=== PATIENT | male | born 1985 | race Caucasian/White ===

== ENCOUNTER 2017-06-28 15:08 | Emergency (ER) | payer BC ==
[~2017-06-28] VITALS: Ht 185.4 cm; Wt 104.3 kg
[~2017-06-28 15:08] MED LIST: BROMFED DM COU118 ML PO; TESSALON PERLE100 MG PO
--- NOTE | 2017-06-28 17:59 | ED GI/GU/ABDOMINAL COMPLAINT ---
History of Present Illness General Chief Complaint: General Adult Stated Complaint: BLEEDING S/P HEMMORRHOID REMOVAL THIS AM Source: patient, old records Exam Limitations: no limitations Vital Signs & Intake/Output Vital Signs & Intake/Output Vital Signs Date Time Temp Pulse Resp B/P B/P Pulse O2 O2 Flow FiO2 Mean Ox Delivery Rate 06/28 1810 64 139/76 06/28 1733 97.9 54 18 105/49 96 Room Air ED Intake and Output 06/29 0000 06/28 1200 Intake Total Output Total Balance Patient 230 lb Weight Weight Reported by Patient Measurement Method Allergies Coded Allergies: shellfish derived (Intermediate, ITCHY EYES/THROAT 11/03/15) Reconcile Medications No Known Home Medications Triage Note: PT TO ED C/O "PROFUSELY BLEEDING". HAD HEMORRHOID REMOVAL TODAY IN DR NOE'S OFFICE AROUND NOON. STARTED BLEEDING ABOUT 1 HOUR AGO, CALLED OFFICE AND WAS TOLD TO COME TO ED. Triage Nurses Notes Reviewed? yes Onset: Abrupt Duration: day(s): (1) Timing: single episode today Quality/Severity: fullness, sharpness Severity Numbers: 8 Location: perianal Radiation: no radiation Activities at Onset: hemorrhoid drainage Prior Abdominal Problems: none Past Sexual History: Unobtainable at this time No Modifying Factors: none Modifying Factors: Worsens With: movement, palpation. HPI: 31-year-old male with no past medical history presents for evaluation of bleeding hemorrhoid. Patient was seen by Dr. Noe in his office this morning where he had a thrombosed hemorrhoid drained. He was discharged home and was doing well until he noticed heavy bleeding coming from the perianal area. He has not had a bowel movement. He also reports increasing pain in the area is not taking any medicine for the pain. No blood thinners. No abdominal pain. No melena. No nausea vomiting diarrhea no fevers. Past History Travel History Traveled to [place] past 21 day No Medical History Any Pertinent Medical History? 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 No Review of Systems Review of Systems Constitutional: Reports: no symptoms. EENTM: Reports: no symptoms. Respiratory: Reports: no symptoms. Cardiovascular: Reports: no symptoms. GI: Reports: see HPI. Genitourinary: Reports: no symptoms. Musculoskeletal: Reports: no symptoms. Skin: Reports: no symptoms. Neurological/Psychological: Reports: no symptoms. Hematologic/Endocrine: Reports: no symptoms. Immunologic/Allergic: Reports: no symptoms. All Other Systems: Reviewed and Negative Physical Exam Physical Exam General Appearance: well developed/nourished, no apparent distress, alert, awake Head: atraumatic, normal appearance Eyes: Bilateral: normal appearance, EOMI. Ears, Nose, Throat, Mouth: hearing grossly normal, moist mucous membrane Neck: normal inspection, supple, full range of motion Respiratory: no respiratory distress Gastrointestinal: soft, non-tender Rectal: there is a external hemorrhoid present with surgical laceration. There is small amount of bleeding from this area. Also appears to be some bleeding from the anus. There is pain to palpation the perianal area. No focal fluctuant areas no erythema no internal hemorrhoids or masses palpated. Back: normal inspection, normal range of motion Extremities: normal range of motion Neurologic/Psych: no motor/sensory deficits, awake, alert, oriented x 3, normal gait Skin: intact, normal color, warm/dry Core Measures ACS in differential dx? No Sepsis Present: No Sepsis Focused Exam Completed? No Progress Differential Diagnosis: bleeding hemorrhoid, postsurgical bleeding, perianal abscess, perirectal abscess, internal hemorrhoid Plan of Care: Patient seen and evaluated. He has bleeding coming from his anus and the drainage thrombosed hemorrhoid. kalostat and gauze was applied to the area. Patient not take any blood thinners he has no medical problems. We'll reevaluate. Patient was seen by Dr. Noe in the ER. There is been no additional bleeding since topical hemostatic applied. Pain is controlled with Percocet. Vital signs are stable patient appears clinically well. He'll be discharged home with instructions to follow-up with Dr. Noe. Initial ED EKG: none Departure Departure Disposition: HOME OR SELF CARE Condition: Stable Clinical Impression Primary Impression: Bleeding external hemorrhoids Referrals: Nelly Beckett MD (PCP/Family) Chilango MONIQUEErick Strickland Additional Instructions: Continue to apply gauze daily. There may be some small amounts of bleeding. Continue to take Percocet as needed for pain. Follow-up with Dr. Noe for recheck in a few days. Monitor symptoms return with increasing bleeding or any other concerns. Departure Forms: Customer Survey General Discharge Information Prescriptions: Current Visit Scripts No Known Home Medications
[2017-06-28 18:10] VITALS: BP 139/76
[2017-09-21] MEDS ORDERED: OXYCODONE HCL5 M1 PO (17:49)
== END 2017-06-28 18:13 ==
LOC: ERH 15:08
DX: K64.4 Residual hemorrhoidal skin tags (principal)

== ENCOUNTER → 2017-09-21 | Day surgery (SDC) | payer OTHER ==
[~2017-09-21] VITALS: Ht 185.4 cm; Wt 104.3 kg
[~2017-09-21] MED LIST changes: +MORPHINE SULFAT15 M4 PO; +OXYCODONE HCL5 M1 PO; +ZOFRAN ODT4 M1 SL
--- NOTE | 2017-09-21 15:55 | Operative Report ---
Operative/Inv Procedure Report Surgery Date: 09/21/17 Name of Procedure: THD (Trans-anal hemorrhoid dearterialization) procedure with suture destruction of internal hemorrhoids multiple Pre-Operative Diagnosis: Internal hemorrhoids with complications Post-Operative Diagnosis: Internal hemorrhoids with complications Estimated Blood Loss: scant Surgeon/Parts Remover: Janusz Vasquez Jr., DO Anesthesia: local monitored anesthesi, block Monitors: Per routine Implants: None Drains: None Specimens: None Complications: None Condition: Good Operative Indication: This is a 32-year-old gentleman with chief complaint of frequent bright red blood per rectum and occasional thrombosis of external hemorrhoids. On physical exam in the office he did not have very large internal hemorrhoids so colonoscopy was performed to exclude other sources of bleeding. No other lower GI source was noted so my impression was that his bleeding was most consistent with hemorrhoid bleeding. So after discussing treatment options we decided on THD procedure Operative/Procedure Note Note: On the morning before his procedure patient in [facility]. He presented to [facility] and was taken to the operating room. He was placed in the supine position on the operating room table. Next he received IV sedation. Once the patient was comfortable he was converted to lithotomy and candycane stirrups. The perineum was prepped and draped in usual fashion. An anal block was performed using 0.5% Marcaine with epinephrine. A total of 30 cc of block was injected. Next the THD anoscope was inserted into the anal canal. The canal was examined quadrant by quadrant for Doppler pulses. 5 individual pulses were identified including: Anterior midline, posterior midline, left lateral, right anterior, right posterior. Using ultrasound guidance the hemorrhoid artery was ligated at each of these 5 positions. Following placement of figure of 8 suture, mucopexy suture destruction of each column was performed. At this point the procedure was concluded. The patient tolerated procedure well was converted back to supine position. At the end of this operation all needle sponges and instruments were accounted for Discharge Disposition: PACU
== END ==
LOC: STS 03:00
DX: K64.8 Other hemorrhoids (principal); K64.5 Perianal venous thrombosis; K62.5 Hemorrhage of anus and rectum; F17.200 Nicotine dependence, unspecified, uncomplicated
CPT/HCPCS: J0131; J2250

== ENCOUNTER 2017-09-22 07:13 | Emergency (ER) | payer OTHER ==
[~2017-09-22] VITALS: Ht 185.4 cm; Wt 102.1 kg
[~2017-09-22 07:13] MED LIST changes: -MORPHINE SULFAT15 M4 PO; -ZOFRAN ODT4 M1 SL
--- NOTE | 2017-09-22 07:45 | ED GENERAL ADULT ---
History of Present Illness General Chief Complaint: Male Genitourinary Problems Stated Complaint: UNABLE TO URINATE S/P SURGERY W DR. SUNG Source: patient, family Exam Limitations: no limitations Vital Signs & Intake/Output Vital Signs & Intake/Output Vital Signs Date Time Temp Pulse Resp B/P B/P Pulse O2 O2 Flow FiO2 Mean Ox Delivery Rate 09/22 1024 98.2 60 18 133/61 95 Room Air 09/22 0717 98.1 64 20 122/76 98 Room Air Allergies Coded Allergies: shellfish derived (Intermediate, ITCHY EYES/THROAT 09/17/17) Reconcile Medications Morphine Sulfate 15 MG TABLET 1 TAB PO BIDP PRN BREAKTHROUGH PAIN Ondansetron (Zofran Odt) 4 MG TAB.RAPDIS 1 TAB SL Q6 PRN NAUSEA/VOMITING Oxycodone HCl 5 MG TABLET 1 TAB PO Q4-6 PRN PAIN CONTROL Triage Note: PT TO ED C/O N/V, UNABLE TO VOID SINCE HEMORRHOID REMOVAL YESTERDAY BY DR LAZAR. PAIN TO RECTUM IS "UNBEARABLE". Triage Nurses Notes Reviewed? yes HPI: Patient is an otherwise healthy 32-year-old male who underwent surgery for hemorrhoids yesterday at 2:30 PM, and presents today with postoperative urinary retention and postoperative pain. He reports that following the surgery and the postoperative recovery unit he had a "trickle" of urine, and was released. Since then, he reports the urge to urinate the inability to do so. He also reports intense pain and his operative site which has been refractory to his dosages of oxycodone overnight. Upon my initial encounter he does appear uncomfortable. Past History Travel History Traveled to [place] past 21 day No Medical History Any Pertinent Medical History? 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 No Review of Systems Review of Systems Constitutional: Reports: see HPI. EENTM: Reports: no symptoms. Respiratory: Reports: no symptoms. Cardiovascular: Reports: no symptoms. GI: Reports: see HPI (rectal pain). Denies: abdominal pain. Genitourinary: Reports: see HPI, hesitation. Musculoskeletal: Reports: no symptoms. Skin: Reports: no symptoms. Neurological/Psychological: Reports: no symptoms. Hematologic/Endocrine: Reports: no symptoms. Immunologic/Allergic: Reports: no symptoms. All Other Systems: Reviewed and Negative Physical Exam Physical Exam General Appearance: alert, awake, anxious, moderate distress Comments: HEENT: Inspection of the head reveals a normocephalic cranium with no signs of trauma. Ophtho: Extraocular muscles are intact. The sclera are noninjected, and there is no obvious discharge. Neck: No signs of trauma or asymmetry to the neck. Respiratory: The patient exhibits no signs of labored breathing. Cardiac: Non-tachycardic. GI: Subjective rectal pain at surgical site : Urinary retention Neuro: The patient is oriented to person, place, time, and situation, with no obvious focal motor deficits. Cranial nerves II through XII are intact, and gait is normal. Behavioral: Anxious, almost tearful secondary to pain Dermatologic: Dermatologic examination reveals no obvious rashes or exanthems. Core Measures ACS in differential dx? No CVA/TIA Diagnosis: No Sepsis Present: No Sepsis Focused Exam Completed? No Progress Differential Diagnoses I considered the following diagnoses in my evaluation of the patient: Postoperative urinary retention, iatrogenic urinary tract infection, anesthesia effects, postoperative pain Plan of Care: Orders Procedure Date/time Status Regular Diet 09/22 L Active Plaza, Insertion/Removal/Asses 09/23 743 Active CULTURE,URINE 09/22 07 Active COMPREHENSIVE METABOLIC PANEL 09/22 07 Complete CBC WITHOUT DIFFERENTIAL 09/22 07 Complete Laboratory Tests 09/22/17 0801: Anion Gap 13, Estimated GFR > 60, BUN/Creatinine Ratio 13.8, Glucose 116 H, Calcium 9.0, Total Bilirubin 0.6, AST 21, ALT 43, Alkaline Phosphatase 74, Total Protein 7.1, Albumin 4.3, Globulin 2.8, Albumin/Globulin Ratio 1.5, CBC w Diff MAN DIFF ORDERED, RBC 5.31, MCV 85.7, MCH 29.2, MCHC 34.1, RDW 13.7, MPV 6.9 L, Gran % 86.3 H, Lymphocytes % 9.3 L, Monocytes % 4.1, Eosinophils % 0.3, Basophils % 0, Absolute Granulocytes 11.5 H, Absolute Lymphocytes 1.2, Absolute Monocytes 0.5, Absolute Eosinophils 0, Absolute Basophils 0, Platelet Estimate ADEQUATE, Normocytic RBCs VERIFIED, Normochromic RBCs VERIFIED Microbiology 09/22 820 URINE ROUT: Urine Culture - RECD Initial ED EKG: normal axis Comments: With Plaza placement, the patient produced 800 mL of urine. Postoperative urinary obstruction is confirmed, and a leg bag was left in with plans for outpatient urology follow-up in 72 hours for voiding trial. A second dosage of analgesia was given prior to discharge, the patient has plenty of oxycodone at home for continued pain. Referral number for on-call urologist was given him and the patient will follow-up with his surgeon as planned as well. Medical screening examination otherwise negative, patient stable at time of discharge. Departure Departure Time of Disposition: 1203 Disposition: HOME OR SELF CARE Condition: Stable Clinical Impression Primary Impression: Urinary retention Referrals: Tatiana MONIQUE,Donnell Doherty Additional Instructions: Please call the attached number to make an appointment with our on-call urologist for a voiding trial on Wednesday. Tell them you have a catheter in place when you call to make the appointment. Use your oxycodone for ongoing pain, and as always return to the emergency department for any new or worsening symptoms. Departure Forms: Customer Survey General Discharge Information Prescriptions: Current Visit Scripts Morphine Sulfate 1 TAB PO BIDP PRN BREAKTHROUGH PAIN #10 TAB Ondansetron (Zofran Odt) 1 TAB SL Q6 PRN NAUSEA/VOMITING #10 TAB Critical Care Note Critical Care Note Critical Care Time: non-applicable
[2017-09-22 08:10] LABS: ABSOLUTE BASOPHIL COUNT 0 /CUMM (0.0-0.2); ABSOLUTE EOSINOPHIL COUNT 0 /CUMM (0.0-0.7); ABSOLUTE GRANULOCYTE CT 11.5 /CUMM (1.4-6.5); ABSOLUTE LYMPH COUNT 1.2 /CUMM (1.2-3.4); ABSOLUTE MONOCYTE COUNT 0.5 /CUMM (0.10-0.60); BASOPHIL % 0 % (0.0-2.0); EOSINOPHIL % 0.3 % (0-5); GRANULOCYTE % 86.3 % (42.2-75.2); HEMATOCRIT 45.5 % (42-52); MEAN CORPUSCULAR HGB 29.2 PG (27.0-31.0); MEAN CORPUSCULAR HGB CONC 34.1 G/DL (33.0-37.0); MEAN CORPUSCULAR VOLUME 85.7 FL (80.0-94.0); MEAN PLATELET VOLUME 6.9 FL (7.4-10.4); PLATELET COUNT 266 /CUMM (130-400); RBC DISTRIBUTION WIDTH 13.7 % (11.5-14.5); RED BLOOD CELL CT 5.31 /CUMM (4.70-6.10); WHITE BLOOD CELL COUNT 13.3 /CUMM (4.8-10.8)
[2017-09-22] MEDS ORDERED: ZOFRAN ODT4 M1 SL (10:35)
[2017-09-22] MEDS ORDERED: MORPHINE SULFAT15 M4 PO (10:35)
[2017-09-22 12:23] VITALS: BP 132/61
== END 2017-09-22 12:41 ==
LOC: ERH 07:13
PROVIDERS: Student in an Organized Health Care Education/Training Program
DX: R33.9 Retention of urine, unspecified (principal)
CPT/HCPCS: 87086; 96374; 96375; 96376; J2405; J3101